=== PATIENT | female | born 1990 | race Caucasian/White ===

== ENCOUNTER 2022-11-22 20:40 | Inpatient (IN) | payer OTHER ==
[~2022-11-22] VITALS: Ht 165.1 cm; Wt 97.5 kg
[2022-11-22] MEDS ORDERED: HYDROmorphone 1 MG/ML AMP IVP PRN (21:05)
[2022-11-22] MEDS ORDERED: ZOLPIDEM 5 MG TAB PO PRN (21:05)
[2022-11-22] MEDS: DEXT 5% / NACL 0.45% 1,000 ML IV SCH (21:05)
[2022-11-22] MEDS ORDERED: ONDANSETRON 4 MG/2 ML VIAL IVP PRN (21:05)
[2022-11-22 21:52] LABS: INR 1.04 (0.8-1.2); PARTIAL THROMBOPLASTIN TIME 28.2 secs (22-35.6); PROTHROMBIN TIME 10.9 secs (10.8-13.4)
[2022-11-22 21:53] LABS: ALBUMIN 2.9 g/dL (3.4-5.0); ANION GAP 11.5 (8-16); CALCIUM 9.2 mg/dL (8.5-10.1); CARBON DIOXIDE 25.5 mmol/L (21-32); TOTAL BILIRUBIN 1.3 mg/dL (0.0-1.0); TOTAL PROTEIN, SERUM 6.7 g/dL (6.4-8.2)
[2022-11-22] MEDS ORDERED: SEMA2PEN SQ (21:53)
[2022-11-22] MEDS ORDERED: SYN.05 PO (21:53)
[2022-11-22] MEDS ORDERED: FLUO40CA6 PO (21:53)
[2022-11-23] VITALS: BP 134/77; PULSE 78; RESP 20; TEMP 98.2; O2SAT 99
[2022-11-23 04:00] VITALS: BP 128/77; PULSE 74; RESP 22; TEMP 98.2; O2SAT 99
[2022-11-23 08:00] VITALS: RESP 16; O2SAT 98
[2022-11-23] MEDS ORDERED: LEVOFLOXACIN 500 MG/D5W PREMIX 100 ML IV STA (09:40)
[2022-11-23 09:54] LABS: BASOPHILS # (AUTO) 0.1 K/uL (0.00-0.22); BASOPHILS % (AUTO) 0.7 % (0.0-2.0); EOSINOPHILS # (AUTO) 0.1 K/uL (0-0.4); EOSINOPHILS % (AUTO) 1.2 % (0.0-4.0); HEMATOCRIT 47.4 % (36-48); HEMOGLOBIN 15.5 g/dL (12.0-16.0); LYMPHOCYTES # (AUTO) 3.2 K/uL (2.5-16.5); LYMPHOCYTES % (AUTO) 31.4 % (20.5-51.1); MEAN CORPUSCULAR HEMOGLOBIN 28 pg (27-31); MEAN CORPUSCULAR HGB CONC 33 g/dL (33-37); MEAN CORPUSCULAR VOLUME 85.8 fL (80-94); MONOCYTES # (AUTO) 0.7 K/uL (0.8-1.0); MONOCYTES % (AUTO) 6.5 % (1.7-9.3); NEUTROPHILS # (AUTO) 6.1 K/uL (1.8-7.7); NEUTROPHILS % (AUTO) 60.2 % (42.2-75.2); PLATELET COUNT (AUTO) 450 K/uL (140-450); RED BLOOD CELL COUNT(AUTO) 5.52 MIL/uL (4.20-5.40); RED CELL DISTRIBUTION WIDTH 14.4 % (11.6-13.7); WHITE BLOOD COUNT (AUTO) 10.1 K/uL (4.8-10.8)
[2022-11-23] MEDS: DEXT 5% / NACL 0.45% 1,000 ML IV SCH ×2 (10:24→22:05)
[2022-11-23] MEDS ORDERED: SEVOFLURANE 250 ML BTL INH ONE (12:36)
[2022-11-23] MEDS ORDERED: fentaNYL citrate 0.05 MG/ML VIAL ONE (12:48)
[2022-11-23] MEDS ORDERED: MAG SULF 2000 MG/WATER PREMIX 50 ML IV PRN (13:10)
[2022-11-23] MEDS ORDERED: POTASSIUM CHLORIDE 10 MEQ TABER PO PRN (13:10)
[2022-11-23] MEDS ORDERED: ACETAMINOPHEN 325 MG TAB PO PRN (13:10)
[2022-11-23] MEDS: NACL 0.9% 1,000 ML IV SCH (13:10)
[2022-11-23] MEDS ORDERED: KETOROLAC 30 MG/ML VIAL ONE (13:14)
[2022-11-23] MEDS ORDERED: PROPOFOL 200 MG/20 ML VIAL IV ONE (13:14)
[2022-11-23] MEDS ORDERED: SUCCINYLCHOLINE CHLORIDE 200 MG/10 ML VIAL IVP ONE (13:14)
[2022-11-23] MEDS ORDERED: ONDANSETRON 4 MG/2 ML VIAL ONE (13:14)
[2022-11-23] MEDS ORDERED: INSULIN LISPRO SLIDING SCALE 100 UNITS/ML VIAL SUBQ PRN (13:15)
[2022-11-23] MEDS ORDERED: DEXTROSE 50% 50 ML SYR IVP PRN (13:15)
[2022-11-23] MEDS ORDERED: HYDROmorphone 1 MG/ML AMP IVP PRN (13:45)
[2022-11-23] MEDS ORDERED: LACTATED RINGERS 1,000 ML IV SCH (13:45)
[2022-11-23] MEDS ORDERED: METOCLOPRAMIDE 10 MG/2 ML INJ VIAL IVP PRN (13:46)
[2022-11-23] MEDS ORDERED: hydrALAZINE 20 MG/ML VIAL IVP PRN (13:46)
[2022-11-23 16:00] VITALS: BP 108/61; PULSE 60; RESP 18; TEMP 98; O2SAT 100
[2022-11-23] MEDS: BLOOD GLUCOSE MONITORING 1 DEV DEV FS SCH ×2 (16:30→21:00)
[2022-11-23 17:18] LABS: INR 1.04 (0.8-1.2); PARTIAL THROMBOPLASTIN TIME 29.4 secs (22-35.6); PROTHROMBIN TIME 10.9 secs (10.8-13.4)
[2022-11-23 17:23] LABS: LACTIC ACID 1.3 mmol/L (0.4-2.0)
[2022-11-23 17:33] LABS: AMYLASE 351 U/L (25-115); CHOL/HDL RATIO 2.6 (1-4.5); CHOLESTEROL 191 mg/dL (<200); FREE T4 (FREE THYROXINE) 1.39 ng/dL (0.76-1.46); HDL CHOLESTEROL 74 mg/dL (40-60); LDL (CALC) 105 mg/dL (60-100); MAGNESIUM 1.8 mg/dL (1.8-2.4); PHOSPHORUS 3.4 mg/dL (2.5-4.9); THYROID STIMULATING HORMONE 1.82 uIU/mL (0.34-3.74); TRIGLYCERIDES 60 mg/dL (30-150)
[2022-11-23 17:42] LABS: LIPASE 5177 U/L (73-393)
[2022-11-23 20:00] VITALS: BP 117/72; PULSE 75; RESP 18; TEMP 98.3; O2SAT 99
[2022-11-23] MEDS: DOCUSATE SODIUM 100 MG GELCAP PO SCH (21:00)
[2022-11-23] MEDS: ONDANSETRON 4 MG/2 ML VIAL IVP PRN (21:22)
[2022-11-24 04:00] VITALS: BP 102/61; PULSE 77; RESP 16; TEMP 97.1; O2SAT 99
[2022-11-24] MEDS: HYDROcodone/APAP 7.5/325 MG 1 TAB PO PRN ×3 (04:44→21:53)
[2022-11-24 05:27] LABS: ANION GAP 11.4 (8-16); CALCIUM 8.7 mg/dL (8.5-10.1); CREATININE 0.9 mg/dL (0.6-1.3); POTASSIUM 4.4 mmol/L (3.5-5.1)
[2022-11-24 05:30] LABS: BASOPHILS # (AUTO) 0.1 K/uL (0.00-0.22); BASOPHILS % (AUTO) 0.5 % (0.0-2.0); EOSINOPHILS # (AUTO) 0.1 K/uL (0-0.4); EOSINOPHILS % (AUTO) 0.5 % (0.0-4.0); HEMATOCRIT 42.6 % (36-48); LYMPHOCYTES # (AUTO) 2.3 K/uL (2.5-16.5); LYMPHOCYTES % (AUTO) 18.7 % (20.5-51.1); MEAN CORPUSCULAR HEMOGLOBIN 28 pg (27-31); MEAN CORPUSCULAR HGB CONC 33 g/dL (33-37); MEAN CORPUSCULAR VOLUME 85.2 fL (80-94); MONOCYTES # (AUTO) 0.8 K/uL (0.8-1.0); MONOCYTES % (AUTO) 6.8 % (1.7-9.3); NEUTROPHILS # (AUTO) 9.1 K/uL (1.8-7.7); NEUTROPHILS % (AUTO) 73.5 % (42.2-75.2); PLATELET COUNT (AUTO) 422 K/uL (140-450); WHITE BLOOD COUNT (AUTO) 12.4 K/uL (4.8-10.8)
[2022-11-24 05:36] LABS: MAGNESIUM 1.8 mg/dL (1.8-2.4); PHOSPHORUS 3.6 mg/dL (2.5-4.9)
[2022-11-24] MEDS: LEVOTHYROXINE 0.05 MG TAB PO SCH (06:45)
[2022-11-24] MEDS: BLOOD GLUCOSE MONITORING 1 DEV DEV FS SCH ×4 (06:47→21:40)
[2022-11-24] MEDS ORDERED: KETOROLAC 30 MG/ML VIAL IVP PRN (07:50)
[2022-11-24] MEDS: DEXT 5% / NACL 0.45% 1,000 ML IV SCH ×4 (07:50→21:59)
[2022-11-24 08:00] VITALS: BP 117/76; PULSE 70; RESP 19; TEMP 97.9; O2SAT 96
[2022-11-24] MEDS ORDERED: LACTULOSE 20 GM/30 ML UDC PO PRN ×3 (08:10→16:25)
[2022-11-24] MEDS ORDERED: SENNA 8.6 MG TAB PO PRN (08:10)
[2022-11-24] MEDS ORDERED: HYDROcodone/APAP 10/325 MG 1 TAB TAB PO PRN (08:10)
[2022-11-24] MEDS: FLUoxetine 20 MG CAP PO SCH (08:13)
[2022-11-24] MEDS: PANTOPRAZOLE 40 MG INJ VIAL IVP SCH (08:14)
[2022-11-24] MEDS: DOCUSATE SODIUM 100 MG GELCAP PO SCH ×2 (08:14→21:48)
[2022-11-24] MEDS: ONDANSETRON 4 MG/2 ML VIAL IVP PRN (08:19)
[2022-11-24] MEDS: CYCLOBENZAPRINE 10 MG TAB PO SCH ×3 (09:00→16:23)
[2022-11-24] MEDS ORDERED: SEMAGLUTIDE 2 MG SQ SCH (09:00)
[2022-11-24] MEDS: NACL 0.9% 1,000 ML IV SCH (09:10)
[2022-11-24] MEDS: LEVOFLOXACIN 500 MG/D5W PREMIX 100 ML IV SCH (09:33)
[2022-11-24] MEDS: GABAPENTIN 300 MG CAP PO SCH ×3 (09:33→16:23)
[2022-11-24] MEDS ORDERED: MORPHINE SULFATE 2 MG/ML SYR IVP PRN (11:50)
[2022-11-24 16:00] VITALS: BP 125/81; PULSE 63; RESP 18; TEMP 97.5; O2SAT 99
[2022-11-24 20:00] VITALS: BP 109/68; PULSE 75; RESP 18; TEMP 98.6; O2SAT 100
[2022-11-24 20:05] LABS: APPEARANCE,URINE CLEAR (CLEAR); BILIRUBIN,URINE NEGATIVE (NEGATIVE); BLOOD, URINE NEGATIVE (NEGATIVE); COLOR,URINE YELLOW (YELLOW); LEUKOCYTE ESTERASE ,URINE NEGATIVE (NEGATIVE); NITRITE, URINE NEGATIVE (NEGATIVE); PH,URINE 7.5 (5.0-9.0); PROTEIN,URINE NEGATIVE (NEGATIVE); UGLUCOSE NEGATIVE (NEGATIVE); UROBILINOGEN,URINE 0.2 EU/dL (0.2 - 1)
[2022-11-24 20:47] LABS: AMPHETAMINE, URINE NEGATIVE ng/ml (NEG <=1000); BARBITURATE, URINE NEGATIVE ng/ml (NEG <=200); BENZODIAZEPINE, URINE NEGATIVE ng/mL (NEG <=200); CANNABINOID, URINE NEGATIVE ng/mL (NEG <=50); COCAINE, URINE NEGATIVE ng/mL (NEG <=300); OPIATE, URINE POSITIVE ng/mL (NEG <=2000); PHENCYCLIDINE SCREEN,URINE NEGATIVE ng/mL (NEG <=25)
[2022-11-25] MEDS: LEVOTHYROXINE 0.05 MG TAB PO SCH (06:23)
[2022-11-25] MEDS: BLOOD GLUCOSE MONITORING 1 DEV DEV FS SCH ×3 (06:31→16:45)
[2022-11-25 06:43] LABS: BASOPHILS % (AUTO) 0.4 % (0.0-2.0); EOSINOPHILS # (AUTO) 0.1 K/uL (0-0.4); EOSINOPHILS % (AUTO) 0.6 % (0.0-4.0); HEMATOCRIT 40.1 % (36-48); HEMOGLOBIN 13.2 g/dL (12.0-16.0); LYMPHOCYTES # (AUTO) 2.6 K/uL (2.5-16.5); LYMPHOCYTES % (AUTO) 24.9 % (20.5-51.1); MEAN CORPUSCULAR HEMOGLOBIN 28 pg (27-31); MEAN CORPUSCULAR HGB CONC 33 g/dL (33-37); MEAN CORPUSCULAR VOLUME 84.9 fL (80-94); MONOCYTES # (AUTO) 0.8 K/uL (0.8-1.0); MONOCYTES % (AUTO) 7.6 % (1.7-9.3); NEUTROPHILS % (AUTO) 66.5 % (42.2-75.2); PLATELET COUNT (AUTO) 400 K/uL (140-450); RED BLOOD CELL COUNT(AUTO) 4.73 MIL/uL (4.20-5.40); RED CELL DISTRIBUTION WIDTH 14.3 % (11.6-13.7); WHITE BLOOD COUNT (AUTO) 10.5 K/uL (4.8-10.8)
[2022-11-25 06:47] LABS: PHOSPHORUS 3.8 mg/dL (2.5-4.9)
[2022-11-25 06:59] LABS: ALBUMIN 2.8 g/dL (3.4-5.0); ANION GAP 11.2 (8-16); CALCIUM 8.5 mg/dL (8.5-10.1); CARBON DIOXIDE 26.9 mmol/L (21-32); CREATININE 0.8 mg/dL (0.6-1.3); POTASSIUM 4.1 mmol/L (3.5-5.1); TOTAL BILIRUBIN 0.5 mg/dL (0.0-1.0); TOTAL PROTEIN, SERUM 6.4 g/dL (6.4-8.2)
[2022-11-25] MEDS: DEXT 5% / NACL 0.45% 1,000 ML IV SCH ×2 (07:04→15:50)
[2022-11-25 08:00] VITALS: BP 101/55; PULSE 67; RESP 18; TEMP 98.7; O2SAT 100; O2SAT 98
[2022-11-25] MEDS: DOCUSATE SODIUM 100 MG GELCAP PO SCH (09:17)
[2022-11-25] MEDS: FLUoxetine 20 MG CAP PO SCH (09:17)
[2022-11-25] MEDS: GABAPENTIN 300 MG CAP PO SCH ×3 (09:17→17:37)
[2022-11-25] MEDS: CYCLOBENZAPRINE 10 MG TAB PO SCH ×3 (09:17→17:37)
[2022-11-25] MEDS: PANTOPRAZOLE 40 MG INJ VIAL IVP SCH (11:13)
[2022-11-25] MEDS: LEVOFLOXACIN 500 MG/D5W PREMIX 100 ML IV SCH (11:14)
[2022-11-25 16:00] VITALS: BP 111/58; PULSE 73; RESP 18; TEMP 97.4; O2SAT 99
== END 2022-11-25 18:15 | disposition home or self-care (01) | DRG 445 ==
LOC: MTU 20:40
PROC: 0F7D8DZ Dilation of Pancreatic Duct with Intraluminal Device, Via Natural or Artificial Opening Endoscopic (ICD-10-PCS; principal; 2022-11-24)
PROC: 0FC98ZZ Extirpation of Matter from Common Bile Duct, Via Natural or Artificial Opening Endoscopic (ICD-10-PCS; 2022-11-24)
DX: K80.70 Calculus of gallbladder and bile duct without cholecystitis without obstruction (principal); E46 Unspecified protein-calorie malnutrition; K83.09 Other cholangitis; E03.9 Hypothyroidism, unspecified; Z90.49 Acquired absence of other specified parts of digestive tract; F32.A Depression, unspecified; F32.9 Major depressive disorder, single episode, unspecified; E11.9 Type 2 diabetes mellitus without complications; Z68.35 Body mass index [BMI] 35.0-35.9, adult; Z88.1 Allergy status to other antibiotic agents
CPT/HCPCS: 36415; 71045; 74330; 77003; 80048; 80053; 80305; 81003; 82150; 82948; 83036; 83605; 83690; 83735; 83880; 84100; 84439; 84443; 84484; 84702; 84703; 85025; 85610; 85730; 87081; 93005; C1727; C1769; C9113; J0330; J1170; J1815; J1885; J1956; J2405; J2704; J3010; J7120